=== PATIENT | male | born 2000 | race Caucasian/White ===

== ENCOUNTER 2023-04-09 19:59 | Emergency (ER) | payer BC ==
[~2023-04-09] VITALS: Ht 190.5 cm; Wt 120.0 kg
[2023-04-09 20:07] VITALS: TEMP 98.4
[2023-04-09 20:56] VITALS: BP 143/83; PULSE 74
== END 2023-04-09 20:56 | disposition home or self-care (01) ==
LOC: COL.ER 19:59
DX: T15.02XA Foreign body in cornea, left eye, initial encounter (principal); T15.01XA Foreign body in cornea, right eye, initial encounter